=== PATIENT | male | born 1940 | race Caucasian/White ===

== ENCOUNTER 2017-11-10 07:38 | Outpatient (CLI) | payer OTHER ==
[~2017-11-10 07:38] MED LIST: AVALIDE 300-251 TAB PO; HYZAAR 100-251 UDTAB; LISINOPRIL10 MG PO; METFORMIN HYDRO25 G1; NADOLOL40 MG PO; ZOCOR40 MG PO; ZYRTEC10 MG PO
== END 2017-11-10 07:47 | disposition home or self-care (01) ==
LOC: LAB 07:38
DX: I10 Essential (primary) hypertension (principal); I25.2 Old myocardial infarction; I87.2 Venous insufficiency (chronic) (peripheral); E78.2 Mixed hyperlipidemia; E11.39 Type 2 diabetes mellitus with other diabetic ophthalmic complication; E11.22 Type 2 diabetes mellitus with diabetic chronic kidney disease; H26.9 Unspecified cataract; R49.0 Dysphonia; K57.30 Diverticulosis of large intestine without perforation or abscess without bleeding; N18.2 Chronic kidney disease, stage 2 (mild); D51.8 Other vitamin B12 deficiency anemias; D69.6 Thrombocytopenia, unspecified; M23.90 Unspecified internal derangement of unspecified knee; J45.909 Unspecified asthma, uncomplicated; E53.9 Vitamin B deficiency, unspecified; Z68.38 Body mass index [BMI] 38.0-38.9, adult; Z86.010 Personal history of colon polyps; Z87.09 Personal history of other diseases of the respiratory system

== ENCOUNTER 2018-01-16 09:34 | Emergency (ER) | payer OTHER ==
[~2018-01-16] VITALS: Ht 170.2 cm; Wt 109.8 kg
[2018-01-16] MEDS ORDERED: LIPITOR20 MG (09:41)
[2018-01-16] MEDS ORDERED: PROMETHAZINE W118 ML PO (13:46)
[2018-01-16] MEDS ORDERED: MEDROLPACK PO (13:46)
[2018-01-16] MEDS ORDERED: ZITHROMAX500 MG PO (13:46)
== END 2018-01-16 14:55 | disposition home or self-care (01) ==
LOC: ER 09:34
DX: J45.998 Other asthma (principal)

== ENCOUNTER 2018-10-05 07:36 | Outpatient (CLI) | payer OTHER ==
[~2018-10-05 07:36] MED LIST changes: +LIPITOR20 MG; +MEDROLPACK PO; +PROMETHAZINE W118 ML PO; +ZITHROMAX500 MG PO
== END 2018-10-05 07:44 | disposition home or self-care (01) ==
LOC: LAB 07:36
DX: I25.2 Old myocardial infarction (principal); I13.10 Hypertensive heart and chronic kidney disease without heart failure, with stage 1 through stage 4 chronic kidney disease, or unspecified chronic kidney disease; I44.7 Left bundle-branch block, unspecified; I87.2 Venous insufficiency (chronic) (peripheral); E78.2 Mixed hyperlipidemia; E11.39 Type 2 diabetes mellitus with other diabetic ophthalmic complication; E11.22 Type 2 diabetes mellitus with diabetic chronic kidney disease; H26.8 Other specified cataract; R49.0 Dysphonia; K57.30 Diverticulosis of large intestine without perforation or abscess without bleeding; K21.9 Gastro-esophageal reflux disease without esophagitis; N18.2 Chronic kidney disease, stage 2 (mild); D51.8 Other vitamin B12 deficiency anemias; D69.6 Thrombocytopenia, unspecified; M23.90 Unspecified internal derangement of unspecified knee; J45.909 Unspecified asthma, uncomplicated; E53.8 Deficiency of other specified B group vitamins; Z68.39 Body mass index [BMI] 39.0-39.9, adult; Z86.010 Personal history of colon polyps; Z87.09 Personal history of other diseases of the respiratory system

== ENCOUNTER 2019-02-01 07:14 | Outpatient (CLI) | payer OTHER | END 2019-02-01 07:26 | disposition home or self-care (01) | LOC: LAB 07:14 | DX: E78.2 Mixed hyperlipidemia (principal); I25.2 Old myocardial infarction; I13.10 Hypertensive heart and chronic kidney disease without heart failure, with stage 1 through stage 4 chronic kidney disease, or unspecified chronic kidney disease; I44.7 Left bundle-branch block, unspecified; I87.2 Venous insufficiency (chronic) (peripheral); E11.39 Type 2 diabetes mellitus with other diabetic ophthalmic complication; E11.22 Type 2 diabetes mellitus with diabetic chronic kidney disease; H26.8 Other specified cataract; R49.0 Dysphonia; K57.30 Diverticulosis of large intestine without perforation or abscess without bleeding; K21.9 Gastro-esophageal reflux disease without esophagitis; N18.2 Chronic kidney disease, stage 2 (mild); D69.6 Thrombocytopenia, unspecified; M23.90 Unspecified internal derangement of unspecified knee; J45.909 Unspecified asthma, uncomplicated; E53.8 Deficiency of other specified B group vitamins; Z68.39 Body mass index [BMI] 39.0-39.9, adult; Z86.010 Personal history of colon polyps; Z87.09 Personal history of other diseases of the respiratory system; E55.9 Vitamin D deficiency, unspecified; R80.8 Other proteinuria; E11.9 Type 2 diabetes mellitus without complications; I11.9 Hypertensive heart disease without heart failure ==

== ENCOUNTER 2019-05-30 06:19 | Outpatient (CLI) | payer OTHER | END 2019-05-30 08:35 | disposition home or self-care (01) | LOC: LAB 06:19 | DX: E11.9 Type 2 diabetes mellitus without complications (principal); E78.2 Mixed hyperlipidemia; I11.9 Hypertensive heart disease without heart failure ==

== ENCOUNTER → 2019-10-23 06:32 | Outpatient (CLI) | payer OTHER | END | disposition home or self-care (01) | LOC: LAB 06:32 | DX: I25.2 Old myocardial infarction (principal); I13.10 Hypertensive heart and chronic kidney disease without heart failure, with stage 1 through stage 4 chronic kidney disease, or unspecified chronic kidney disease; I44.7 Left bundle-branch block, unspecified; I87.2 Venous insufficiency (chronic) (peripheral); E78.2 Mixed hyperlipidemia; E11.39 Type 2 diabetes mellitus with other diabetic ophthalmic complication; E11.22 Type 2 diabetes mellitus with diabetic chronic kidney disease; H26.8 Other specified cataract; R49.0 Dysphonia; K57.30 Diverticulosis of large intestine without perforation or abscess without bleeding; K21.9 Gastro-esophageal reflux disease without esophagitis; N18.3 Chronic kidney disease, stage 3 (moderate); D69.6 Thrombocytopenia, unspecified; M23.90 Unspecified internal derangement of unspecified knee; J45.998 Other asthma; E53.8 Deficiency of other specified B group vitamins; Z68.41 Body mass index [BMI] 40.0-44.9, adult; Z86.010 Personal history of colon polyps; Z87.09 Personal history of other diseases of the respiratory system; R80.8 Other proteinuria; E03.8 Other specified hypothyroidism ==

== ENCOUNTER 2020-03-29 06:28 | Outpatient (CLI) | payer OTHER | END 2020-03-29 06:34 | disposition home or self-care (01) | LOC: LAB 06:28 | PROVIDERS: ATTEND Internal Medicine | DX: I25.2 Old myocardial infarction (principal); I13.10 Hypertensive heart and chronic kidney disease without heart failure, with stage 1 through stage 4 chronic kidney disease, or unspecified chronic kidney disease; I44.7 Left bundle-branch block, unspecified; I87.2 Venous insufficiency (chronic) (peripheral); E78.2 Mixed hyperlipidemia; E11.39 Type 2 diabetes mellitus with other diabetic ophthalmic complication; E11.22 Type 2 diabetes mellitus with diabetic chronic kidney disease; H26.8 Other specified cataract; R49.0 Dysphonia; K57.30 Diverticulosis of large intestine without perforation or abscess without bleeding; K21.9 Gastro-esophageal reflux disease without esophagitis; N18.3 Chronic kidney disease, stage 3 (moderate); D51.8 Other vitamin B12 deficiency anemias; D69.59 Other secondary thrombocytopenia; M23.90 Unspecified internal derangement of unspecified knee; J45.902 Unspecified asthma with status asthmaticus; E53.9 Vitamin B deficiency, unspecified; Z68.38 Body mass index [BMI] 38.0-38.9, adult; Z86.010 Personal history of colon polyps; Z87.09 Personal history of other diseases of the respiratory system; D50.8 Other iron deficiency anemias; R80.8 Other proteinuria; N39.0 Urinary tract infection, site not specified; R00.2 Palpitations; I11.9 Hypertensive heart disease without heart failure; E11.9 Type 2 diabetes mellitus without complications ==

== ENCOUNTER 2020-08-14 07:30 | Outpatient (CLI) | payer OTHER | END 2020-08-14 07:35 | disposition home or self-care (01) | LOC: LAB 07:30 | PROVIDERS: ATTEND Internal Medicine | DX: I25.2 Old myocardial infarction (principal); I13.10 Hypertensive heart and chronic kidney disease without heart failure, with stage 1 through stage 4 chronic kidney disease, or unspecified chronic kidney disease; I44.7 Left bundle-branch block, unspecified; I87.2 Venous insufficiency (chronic) (peripheral); E78.2 Mixed hyperlipidemia; E11.39 Type 2 diabetes mellitus with other diabetic ophthalmic complication; E11.22 Type 2 diabetes mellitus with diabetic chronic kidney disease; H26.8 Other specified cataract; R49.0 Dysphonia; K57.30 Diverticulosis of large intestine without perforation or abscess without bleeding; K21.9 Gastro-esophageal reflux disease without esophagitis; N18.30 Chronic kidney disease, stage 3 unspecified; D69.6 Thrombocytopenia, unspecified; M23.90 Unspecified internal derangement of unspecified knee; J45.909 Unspecified asthma, uncomplicated; E53.8 Deficiency of other specified B group vitamins; Z68.38 Body mass index [BMI] 38.0-38.9, adult; Z86.010 Personal history of colon polyps; Z87.09 Personal history of other diseases of the respiratory system; N39.0 Urinary tract infection, site not specified; N39.9 Disorder of urinary system, unspecified; D64.89 Other specified anemias; N28.89 Other specified disorders of kidney and ureter; R97.20 Elevated prostate specific antigen [PSA]; R78.89 Finding of other specified substances, not normally found in blood; C26.9 Malignant neoplasm of ill-defined sites within the digestive system ==

== ENCOUNTER 2020-12-06 06:15 | Outpatient (CLI) | payer OTHER | END 2020-12-06 06:21 | disposition home or self-care (01) | LOC: LAB 06:15 | PROVIDERS: ATTEND Ophthalmology | DX: H25.012 Cortical age-related cataract, left eye (principal); D68.8 Other specified coagulation defects ==

== ENCOUNTER 2021-01-01 07:15 | Outpatient (CLI) | payer OTHER | END 2021-01-01 07:18 | disposition home or self-care (01) | LOC: LAB 07:15 | PROVIDERS: ATTEND Internal Medicine | DX: I25.2 Old myocardial infarction (principal); I13.10 Hypertensive heart and chronic kidney disease without heart failure, with stage 1 through stage 4 chronic kidney disease, or unspecified chronic kidney disease; I44.7 Left bundle-branch block, unspecified; I87.2 Venous insufficiency (chronic) (peripheral); E78.2 Mixed hyperlipidemia; E11.39 Type 2 diabetes mellitus with other diabetic ophthalmic complication; E11.22 Type 2 diabetes mellitus with diabetic chronic kidney disease; H26.8 Other specified cataract; R49.0 Dysphonia; K57.30 Diverticulosis of large intestine without perforation or abscess without bleeding; K21.9 Gastro-esophageal reflux disease without esophagitis; N18.30 Chronic kidney disease, stage 3 unspecified; N39.0 Urinary tract infection, site not specified; D51.8 Other vitamin B12 deficiency anemias; D69.49 Other primary thrombocytopenia; M23.90 Unspecified internal derangement of unspecified knee; J45.909 Unspecified asthma, uncomplicated; E55.9 Vitamin D deficiency, unspecified; Z68.38 Body mass index [BMI] 38.0-38.9, adult; Z86.010 Personal history of colon polyps; Z87.09 Personal history of other diseases of the respiratory system; R00.2 Palpitations; I11.9 Hypertensive heart disease without heart failure; E11.9 Type 2 diabetes mellitus without complications ==

== ENCOUNTER → 2021-06-18 07:35 | Outpatient (CLI) | payer OTHER | END | disposition home or self-care (01) | LOC: LAB 07:35 | PROVIDERS: ATTEND Internal Medicine | DX: J45.998 Other asthma (principal); I25.2 Old myocardial infarction; I13.10 Hypertensive heart and chronic kidney disease without heart failure, with stage 1 through stage 4 chronic kidney disease, or unspecified chronic kidney disease; I44.7 Left bundle-branch block, unspecified; I87.2 Venous insufficiency (chronic) (peripheral); E78.2 Mixed hyperlipidemia; E11.39 Type 2 diabetes mellitus with other diabetic ophthalmic complication; E11.22 Type 2 diabetes mellitus with diabetic chronic kidney disease; E11.620 Type 2 diabetes mellitus with diabetic dermatitis; Z98.42 Cataract extraction status, left eye; Z98.41 Cataract extraction status, right eye; K57.30 Diverticulosis of large intestine without perforation or abscess without bleeding; K21.9 Gastro-esophageal reflux disease without esophagitis; N18.30 Chronic kidney disease, stage 3 unspecified; D51.8 Other vitamin B12 deficiency anemias; D69.6 Thrombocytopenia, unspecified; M23.90 Unspecified internal derangement of unspecified knee; B35.3 Tinea pedis; Z68.38 Body mass index [BMI] 38.0-38.9, adult; N39.0 Urinary tract infection, site not specified ==

== ENCOUNTER 2021-11-05 07:40 | Outpatient (CLI) | payer OTHER | END 2021-11-05 07:47 | disposition home or self-care (01) | LOC: LAB 07:40 | PROVIDERS: ATTEND Internal Medicine | DX: I25.2 Old myocardial infarction (principal); I13.10 Hypertensive heart and chronic kidney disease without heart failure, with stage 1 through stage 4 chronic kidney disease, or unspecified chronic kidney disease; I44.7 Left bundle-branch block, unspecified; I87.2 Venous insufficiency (chronic) (peripheral); E78.2 Mixed hyperlipidemia; E11.39 Type 2 diabetes mellitus with other diabetic ophthalmic complication; E11.22 Type 2 diabetes mellitus with diabetic chronic kidney disease; H26.9 Unspecified cataract; R49.0 Dysphonia; K57.30 Diverticulosis of large intestine without perforation or abscess without bleeding; K21.9 Gastro-esophageal reflux disease without esophagitis; N18.30 Chronic kidney disease, stage 3 unspecified; N39.0 Urinary tract infection, site not specified; D51.8 Other vitamin B12 deficiency anemias; D69.6 Thrombocytopenia, unspecified; M23.90 Unspecified internal derangement of unspecified knee; J45.909 Unspecified asthma, uncomplicated; E53.9 Vitamin B deficiency, unspecified; E55.9 Vitamin D deficiency, unspecified; Z68.38 Body mass index [BMI] 38.0-38.9, adult; Z86.010 Personal history of colon polyps; Z87.09 Personal history of other diseases of the respiratory system ==

== ENCOUNTER 2022-04-22 07:14 | Outpatient (CLI) | payer OTHER | END 2022-04-22 07:55 | disposition home or self-care (01) | LOC: LAB 07:14 | PROVIDERS: ATTEND Internal Medicine | DX: R00.2 Palpitations (principal); I11.9 Hypertensive heart disease without heart failure; E78.2 Mixed hyperlipidemia; I25.2 Old myocardial infarction; I13.10 Hypertensive heart and chronic kidney disease without heart failure, with stage 1 through stage 4 chronic kidney disease, or unspecified chronic kidney disease; I44.7 Left bundle-branch block, unspecified; I87.2 Venous insufficiency (chronic) (peripheral); E11.39 Type 2 diabetes mellitus with other diabetic ophthalmic complication; E11.22 Type 2 diabetes mellitus with diabetic chronic kidney disease; E11.620 Type 2 diabetes mellitus with diabetic dermatitis; K57.30 Diverticulosis of large intestine without perforation or abscess without bleeding; K21.9 Gastro-esophageal reflux disease without esophagitis; N18.30 Chronic kidney disease, stage 3 unspecified; D51.8 Other vitamin B12 deficiency anemias; D69.6 Thrombocytopenia, unspecified; B35.3 Tinea pedis; N39.0 Urinary tract infection, site not specified; N40.1 Benign prostatic hyperplasia with lower urinary tract symptoms; E03.8 Other specified hypothyroidism; D52.9 Folate deficiency anemia, unspecified; E55.9 Vitamin D deficiency, unspecified; Z98.42 Cataract extraction status, left eye; Z98.41 Cataract extraction status, right eye; Z68.39 Body mass index [BMI] 39.0-39.9, adult; Z87.09 Personal history of other diseases of the respiratory system; Z86.010 Personal history of colon polyps ==

== ENCOUNTER 2022-10-21 07:08 | Outpatient (CLI) | payer OTHER | END 2022-10-21 07:09 | disposition home or self-care (01) | LOC: LAB 07:08 | PROVIDERS: ATTEND Internal Medicine | DX: I25.2 Old myocardial infarction (principal); I13.10 Hypertensive heart and chronic kidney disease without heart failure, with stage 1 through stage 4 chronic kidney disease, or unspecified chronic kidney disease; I44.7 Left bundle-branch block, unspecified; I87.2 Venous insufficiency (chronic) (peripheral); E78.2 Mixed hyperlipidemia; E11.39 Type 2 diabetes mellitus with other diabetic ophthalmic complication; E11.22 Type 2 diabetes mellitus with diabetic chronic kidney disease; E11.620 Type 2 diabetes mellitus with diabetic dermatitis; J45.998 Other asthma; Z98.42 Cataract extraction status, left eye; Z98.41 Cataract extraction status, right eye; H40.003 Preglaucoma, unspecified, bilateral; K57.30 Diverticulosis of large intestine without perforation or abscess without bleeding; K21.9 Gastro-esophageal reflux disease without esophagitis; N18.30 Chronic kidney disease, stage 3 unspecified; D51.8 Other vitamin B12 deficiency anemias; D69.6 Thrombocytopenia, unspecified; M23.90 Unspecified internal derangement of unspecified knee; B35.3 Tinea pedis; E53.9 Vitamin B deficiency, unspecified; Z68.39 Body mass index [BMI] 39.0-39.9, adult; N39.0 Urinary tract infection, site not specified ==

== ENCOUNTER 2023-03-17 07:10 | Outpatient (CLI) | payer OTHER | END 2023-03-17 07:14 | disposition home or self-care (01) | LOC: LAB 07:10 | PROVIDERS: ATTEND Internal Medicine | DX: R00.2 Palpitations (principal); I11.9 Hypertensive heart disease without heart failure; E78.2 Mixed hyperlipidemia; I25.2 Old myocardial infarction; I13.10 Hypertensive heart and chronic kidney disease without heart failure, with stage 1 through stage 4 chronic kidney disease, or unspecified chronic kidney disease; I44.7 Left bundle-branch block, unspecified; I87.2 Venous insufficiency (chronic) (peripheral); E11.39 Type 2 diabetes mellitus with other diabetic ophthalmic complication; E11.22 Type 2 diabetes mellitus with diabetic chronic kidney disease; E11.620 Type 2 diabetes mellitus with diabetic dermatitis; E11.69 Type 2 diabetes mellitus with other specified complication; J45.909 Unspecified asthma, uncomplicated; Z98.42 Cataract extraction status, left eye; Z98.41 Cataract extraction status, right eye; H40.003 Preglaucoma, unspecified, bilateral; K57.30 Diverticulosis of large intestine without perforation or abscess without bleeding; K21.9 Gastro-esophageal reflux disease without esophagitis; N18.30 Chronic kidney disease, stage 3 unspecified; D51.8 Other vitamin B12 deficiency anemias; D69.6 Thrombocytopenia, unspecified; D63.1 Anemia in chronic kidney disease; M23.90 Unspecified internal derangement of unspecified knee; B35.3 Tinea pedis; E53.9 Vitamin B deficiency, unspecified; Z68.38 Body mass index [BMI] 38.0-38.9, adult; N39.0 Urinary tract infection, site not specified; E03.8 Other specified hypothyroidism; E55.9 Vitamin D deficiency, unspecified; Z12.11 Encounter for screening for malignant neoplasm of colon ==

== ENCOUNTER 2023-05-29 11:04 | Emergency (ER) | payer OTHER ==
[~2023-05-29] VITALS: Ht 175.3 cm; Wt 108.9 kg
[2023-05-29 16:19] LABS: HEMATOCRIT 38.8 % (39.0-48.0); MEAN CELL VOLUME 89.6 fL (80.0-100.00); MEAN CORPUSCULAR HGB CONC 33.5 g/dl (32.0-36.0); PLATELET COUNT 160 K/uL (150-450); RED BLOOD COUNT 4.34 M/uL (4.00-6.00); RED CELL DISTRIBUTION WIDTH 13.3 % (11.5-14.5)
[2023-05-29 16:58] LABS: BILIRUBIN TOTAL 0.48 mg/dL (0.3-1.2); CALCIUM 9.1 mg/dL (8.5-10.1); CREATININE SERUM 1.23 mg/dL (0.70-1.30); GFR 56.33; GLOBULINA 3.7 G/DL (2.4-3.5); POTASSIUM 3.87 mEq/L (3.5-5.1); TOTAL PROTEIN 7.7 gm/dL (6.4-8.2)
== END 2023-05-29 19:43 | disposition home or self-care (01) ==
LOC: ER 11:05
PROVIDERS: General Practice
DX: R10.31 Right lower quadrant pain (principal); E11.9 Type 2 diabetes mellitus without complications; Z79.84 Long term (current) use of oral hypoglycemic drugs; I10 Essential (primary) hypertension

== ENCOUNTER → 2023-09-14 06:24 | Outpatient (CLI) | payer OTHER ==
[2023-09-14 07:14] LABS: URINE APPEARANCE Clear; URINE BILIRRUBIN Negative (NEGATIVE); URINE BLOOD Negative; URINE COLOR Yellow; URINE GLUCOSE Negative (NEGATIVE); URINE LEUKOCYTE Negative; URINE NITRATE Negative; URINE PROTEIN Negative (NEGATIVE); URINE UROBILINOGEN 0.2 E.U./dl
[2023-09-14 07:16] LABS: URINE BACTERIA 6.2 uL (0.0-1933)
[2023-09-14 07:18] LABS: URINE EPITHELIAL CELLS 0.6 uL (0.0-38.8); URINE RBC 0.8 uL (0.0-20.8); URINE WBC 0.4 uL (0.0-23.2)
[2023-09-14 07:24] LABS: HEMATOCRIT 35.8 % (39.0-48.0); MEAN CELL VOLUME 89.3 fL (80.0-100.00); MEAN CORPUSCULAR HGB CONC 33.6 g/dl (32.0-36.0); PLATELET COUNT 135 K/uL (150-450); RED BLOOD COUNT 4.01 M/uL (4.00-6.00); RED CELL DISTRIBUTION WIDTH 14.2 % (11.5-14.5)
[2023-09-14 08:02] LABS: ALBUMIN 3.6 gm/dL (3.4-5.0); BILIRUBIN TOTAL 0.6 mg/dL (0.3-1.2); CALCIUM 9.2 mg/dL (8.5-10.1); CHOL HDL RATIO 2.6 (0-5.0); CREATININE SERUM 1.17 mg/dL (0.70-1.30); GFR 59.68; GLOBULINA 3.2 G/DL (2.4-3.5); POTASSIUM 4.54 mEq/L (3.5-5.1); T4 FREE 0.83 NG/ML (0.76-1.46); TOTAL PROTEIN 6.8 gm/dL (6.4-8.2); TSH 2.5 uIU/mL (0.358-3.74)
== END | disposition home or self-care (01) ==
LOC: LAB 06:24
PROVIDERS: ATTEND Internal Medicine
DX: I25.2 Old myocardial infarction (principal); I13.10 Hypertensive heart and chronic kidney disease without heart failure, with stage 1 through stage 4 chronic kidney disease, or unspecified chronic kidney disease; I44.7 Left bundle-branch block, unspecified; I87.2 Venous insufficiency (chronic) (peripheral); E78.2 Mixed hyperlipidemia; E11.39 Type 2 diabetes mellitus with other diabetic ophthalmic complication; E11.22 Type 2 diabetes mellitus with diabetic chronic kidney disease; E11.620 Type 2 diabetes mellitus with diabetic dermatitis; E11.69 Type 2 diabetes mellitus with other specified complication; J45.909 Unspecified asthma, uncomplicated; Z98.42 Cataract extraction status, left eye

== ENCOUNTER 2024-08-09 07:18 | Outpatient (CLI) | payer OTHER ==
[2024-08-09 09:01] LABS: HEMATOCRIT 35.5 % (39.0-48.0); HEMOGLOBIN 12.2 g/dL (13-16.00); MEAN CELL VOLUME 89.1 fL (80.0-100.00); MEAN CORPUSCULAR HEMOGLOBIN 30.5 pg (27.00-32.0); MEAN CORPUSCULAR HGB CONC 34.3 g/dl (32.0-36.0); PLATELET COUNT 141 K/uL (150-450); RED BLOOD COUNT 3.98 M/uL (4.00-6.00); RED CELL DISTRIBUTION WIDTH 13.7 % (11.5-14.5)
[2024-08-09 09:08] LABS: PH,URINE 6.5 (5.0-8.0); URINE APPEARANCE Clear; URINE BILIRRUBIN Negative (NEGATIVE); URINE BLOOD Negative; URINE COLOR Yellow; URINE GLUCOSE Negative (NEGATIVE); URINE KETONE Negative (NEGATIVE); URINE LEUKOCYTE Negative; URINE NITRATE Negative; URINE PROTEIN Negative (NEGATIVE); URINE UROBILINOGEN 0.2 E.U./dl
[2024-08-09 09:12] LABS: URINE BACTERIA 26.4 uL (0.0-1933); URINE EPITHELIAL CELLS 3.3 uL (0.0-38.8); URINE RBC 3.6 uL (0.0-20.8); URINE WBC 1.8 uL (0.0-23.2)
[2024-08-09 09:38] LABS: URINE CAST 1.06 uL (0.0-1.40)
[2024-08-09 09:42] LABS: ALBUMIN 3.6 gm/dL (3.4-5.0); BILIRUBIN TOTAL 0.45 mg/dL (0.3-1.2); CALCIUM 8.9 mg/dL (8.5-10.1); CHOL HDL RATIO 2.3 (0-5.0); CREATININE SERUM 1.18 mg/dL (0.70-1.30); GFR 58.95; GLOBULINA 3.3 G/DL (2.4-3.5); POTASSIUM 4.08 mEq/L (3.5-5.1); PROSTATIC SPECIFIC ANTIGEN 2.58 NG/ML (0.010-4.00); TOTAL PROTEIN 6.9 gm/dL (6.4-8.2)
== END 2024-08-09 07:19 | disposition home or self-care (01) ==
LOC: LAB 07:18
PROVIDERS: ATTEND Internal Medicine
DX: I25.2 Old myocardial infarction (principal); I13.10 Hypertensive heart and chronic kidney disease without heart failure, with stage 1 through stage 4 chronic kidney disease, or unspecified chronic kidney disease; I44.7 Left bundle-branch block, unspecified; I87.2 Venous insufficiency (chronic) (peripheral); E78.2 Mixed hyperlipidemia; E11.69 Type 2 diabetes mellitus with other specified complication; J45.909 Unspecified asthma, uncomplicated; J44.9 Chronic obstructive pulmonary disease, unspecified; Z98.42 Cataract extraction status, left eye; Z98.41 Cataract extraction status, right eye; H40.003 Preglaucoma, unspecified, bilateral; K57.30 Diverticulosis of large intestine without perforation or abscess without bleeding; K21.9 Gastro-esophageal reflux disease without esophagitis; N18.32 Chronic kidney disease, stage 3b; D51.8 Other vitamin B12 deficiency anemias; D69.6 Thrombocytopenia, unspecified; D63.1 Anemia in chronic kidney disease; M23.90 Unspecified internal derangement of unspecified knee; B35.3 Tinea pedis; E53.9 Vitamin B deficiency, unspecified; Z68.35 Body mass index [BMI] 35.0-35.9, adult; E66.01 Morbid (severe) obesity due to excess calories; N39.0 Urinary tract infection, site not specified; E03.8 Other specified hypothyroidism; E55.9 Vitamin D deficiency, unspecified; D50.8 Other iron deficiency anemias; D52.9 Folate deficiency anemia, unspecified; Z12.11 Encounter for screening for malignant neoplasm of colon; N40.0 Benign prostatic hyperplasia without lower urinary tract symptoms

== ENCOUNTER 2025-01-03 07:17 | Outpatient (CLI) | payer OTHER ==
[2025-01-03 08:42] LABS: HEMATOCRIT 36.9 % (39.0-48.0); HEMOGLOBIN 12.1 g/dL (13-16.00); MEAN CELL VOLUME 90.3 fL (80.0-100.00); MEAN CORPUSCULAR HEMOGLOBIN 29.6 pg (27.00-32.0); MEAN CORPUSCULAR HGB CONC 32.8 g/dl (32.0-36.0); PLATELET COUNT 133 K/uL (150-450); RED BLOOD COUNT 4.09 M/uL (4.00-6.00)
[2025-01-03 08:44] LABS: PH,URINE 6.5 (5.0-8.0); URINE APPEARANCE Clear; URINE BILIRRUBIN Negative (NEGATIVE); URINE BLOOD Negative; URINE COLOR Yellow; URINE GLUCOSE Negative (NEGATIVE); URINE KETONE Negative (NEGATIVE); URINE LEUKOCYTE Negative; URINE NITRATE Negative; URINE PROTEIN Negative (NEGATIVE); URINE UROBILINOGEN 0.2 E.U./dl
[2025-01-03 08:48] LABS: URINE BACTERIA 34.2 uL (0.0-1933); URINE WBC 2.2 uL (0.0-23.2)
[2025-01-03 08:51] LABS: URINE CAST 0.14 uL (0.0-1.40); URINE RBC 1.6 uL (0.0-20.8)
[2025-01-03 09:27] LABS: ALBUMIN 3.5 gm/dL (3.4-5.0); BILIRUBIN TOTAL 0.51 mg/dL (0.3-1.2); CALCIUM 9.1 mg/dL (8.5-10.1); CHOL HDL RATIO 2.6 (0-5.0); CREATININE SERUM 1.17 mg/dL (0.70-1.30); GFR 59.54; GLOBULINA 3.2 G/DL (2.4-3.5); POTASSIUM 4.11 mEq/L (3.5-5.1); TOTAL PROTEIN 6.7 gm/dL (6.4-8.2)
[2025-01-04 12:16] LABS: FOLIC ACID > 20.00 ng/ml (4.78-20); VITAMIN D3 25 HYDROXY 54.86 ng/ml (30-120)
== END 2025-01-03 07:20 | disposition home or self-care (01) ==
LOC: LAB 07:17
PROVIDERS: ATTEND Internal Medicine
DX: I25.2 Old myocardial infarction (principal); I13.10 Hypertensive heart and chronic kidney disease without heart failure, with stage 1 through stage 4 chronic kidney disease, or unspecified chronic kidney disease; I87.2 Venous insufficiency (chronic) (peripheral); E78.2 Mixed hyperlipidemia; J44.9 Chronic obstructive pulmonary disease, unspecified; J45.909 Unspecified asthma, uncomplicated; Z98.41 Cataract extraction status, right eye; K57.30 Diverticulosis of large intestine without perforation or abscess without bleeding; K21.9 Gastro-esophageal reflux disease without esophagitis; N18.32 Chronic kidney disease, stage 3b; D51.8 Other vitamin B12 deficiency anemias; D69.6 Thrombocytopenia, unspecified; D63.1 Anemia in chronic kidney disease; M23.90 Unspecified internal derangement of unspecified knee; Z68.35 Body mass index [BMI] 35.0-35.9, adult; E66.01 Morbid (severe) obesity due to excess calories; N39.0 Urinary tract infection, site not specified; E03.8 Other specified hypothyroidism; R73.01 Impaired fasting glucose; E55.9 Vitamin D deficiency, unspecified; D50.8 Other iron deficiency anemias; D52.9 Folate deficiency anemia, unspecified; M06.4 Inflammatory polyarthropathy; Z12.11 Encounter for screening for malignant neoplasm of colon

== ENCOUNTER 2025-06-10 06:19 | Outpatient (CLI) | payer OTHER ==
[2025-06-10 07:25] LABS: BASO % 0.6 % (0.1-1.2); EOS # 0.17 (0.04-0.54); EOS % 3.2 % (0.7-7.0); LYMPH # 2.04 (1.18-3.74); LYMPH % 38.6 % (19.3-53.1); MEAN PLATELET VOLUME 11.60 fl (9.4-12.4); MONO # 0.44 (0.24-0.82); MONO % 8.3 % (4.7-12.5); NEUT # 2.60 (1.56-6.13); NEUT % 49.1 % (34.0-71.1); RED CELL DISTRIBUTION WIDTH 12.7 % (11.6-14.4)
[2025-06-10 07:59] LABS: URINE APPEARANCE Clear; URINE BILIRRUBIN Negative (NEGATIVE); URINE BLOOD Negative; URINE COLOR Yellow; URINE GLUCOSE Negative (NEGATIVE); URINE KETONE Negative (NEGATIVE); URINE LEUKOCYTE Negative; URINE NITRATE Negative; URINE PROTEIN Negative (NEGATIVE); URINE UROBILINOGEN 0.2 E.U./dl
[2025-06-10 08:07] LABS: URINE BACTERIA 26.3 uL (0.0-1933); URINE EPITHELIAL CELLS 2.7 uL (0.0-38.8)
[2025-06-10 08:09] LABS: CREATININE URINE RANDOM 143.0 MG/DL (30-125)
[2025-06-10 08:35] LABS: URINE CAST 0.00 uL (0.0-1.40); URINE RBC 1.9 uL (0.0-20.8); URINE WBC 1.5 uL (0.0-23.2)
[2025-06-10 08:44] LABS: ALT/SGPT 21.0 U/L (12-78); AST/SGOT 13.0 U/L (15-37); BILIRUBIN TOTAL 0.32 mg/dL (0.3-1.2); BUN CREA RATIO 20.0 (7.0-25.0); CHOL HDL RATIO 2.5 (0-5.0); CREATININE SERUM 1.12 mg/dL (0.70-1.30); GFR 62.46; GLOBULINA 3.3 G/DL (2.4-3.5); GLUCOSE FASTING 111.0 mg/dL (65-100); HDL 59.0 mg/dl (40-60); LDL 74.0 mg/dl (0-130); OSMOLALITY SERUM 287.0 MOSM/KG (275-295); VLDL 15.0 (0-39)
== END 2025-06-10 06:21 | disposition home or self-care (01) ==
LOC: LAB 06:19
PROVIDERS: ATTEND Internal Medicine
DX: I25.2 Old myocardial infarction (principal); E83.42 Hypomagnesemia; I13.10 Hypertensive heart and chronic kidney disease without heart failure, with stage 1 through stage 4 chronic kidney disease, or unspecified chronic kidney disease; I44.7 Left bundle-branch block, unspecified; I87.2 Venous insufficiency (chronic) (peripheral); E78.2 Mixed hyperlipidemia